=== PATIENT | male | born 1935 | race Caucasian/White ===

== ENCOUNTER → 2016-12-29 | Outpatient (CLI) | payer MEDICARE, BC ==
[2014-03-04 16:22] VITALS: BP 172/83
[2016-12-29 16:54] LABS: ALBUMIN 3.5 g/dL (3.4-5.0); ALBUMIN/GLOBULIN RATIO 0.9 (1.0-1.7); CREATININE 2.1 mg/dL (0.7-1.3); GFR 30.4; POTASSIUM 4.7 mmol/L (3.5-5.1); TOTAL BILIRUBIN 0.6 mg/dL (0.2-1.0); TOTAL PROTEIN 7.5 g/dL (6.4-8.2)
[2016-12-29 16:59] LABS: FREE T4 1.13 ng/dL (0.76-1.46)
== END | disposition home or self-care (01) ==
LOC: LAB 15:33
PROVIDERS: ATTEND Psychiatry & Neurology Neurology
DX: F02.80 Dementia in other diseases classified elsewhere, unspecified severity, without behavioral disturbance, psychotic disturbance, mood disturbance, and anxiety (principal); Z79.899 Other long term (current) drug therapy
CPT/HCPCS: 36415; 80053; 82607; 84439; 84443

== ENCOUNTER → 2017-01-07 | Outpatient (CLI) | payer MEDICARE, BC ==
[2014-03-04 16:22] VITALS: BP 172/83
== END | disposition home or self-care (01) ==
LOC: RT 09:03
PROVIDERS: ATTEND Psychiatry & Neurology Neurology
DX: F03.90 Unspecified dementia, unspecified severity, without behavioral disturbance, psychotic disturbance, mood disturbance, and anxiety (principal)
CPT/HCPCS: 95816

== ENCOUNTER → 2017-01-26 | Outpatient (CLI) | payer MEDICARE, BC ==
[2014-03-04 16:22] VITALS: BP 172/83
[2017-01-26 15:51] LABS: CREATININE 1.9 mg/dL (0.7-1.3); GFR 34.1
== END | disposition home or self-care (01) ==
LOC: LAB 14:27
PROVIDERS: ATTEND Psychiatry & Neurology Neurology
DX: N19 Unspecified kidney failure (principal)
CPT/HCPCS: 36415; 82565; 84520

== ENCOUNTER → 2017-01-27 | Outpatient (CLI) | payer MEDICARE, BC ==
[2014-03-04 16:22] VITALS: BP 172/83
--- NOTE | 2017-01-27 11:59 | EKG ---
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
== END | disposition home or self-care (01) ==
LOC: EKG 11:39
PROVIDERS: ATTEND Psychiatry & Neurology Neurology
DX: R41.3 Other amnesia (principal)
CPT/HCPCS: 93005